=== PATIENT | male | born 1970 | race Caucasian/White ===

== ENCOUNTER 2021-05-10 16:41 | Emergency (ER) | payer BC ==
[2021-05-10] MEDS ORDERED: HYDROCODON-ACE1 EAC4 PO (18:32)
== END 2021-05-10 18:45 | disposition home or self-care (01) ==
LOC: ER1 16:41
DX: S42.032A Displaced fracture of lateral end of left clavicle, initial encounter for closed fracture (principal); S01.01XA Laceration without foreign body of scalp, initial encounter; Z88.0 Allergy status to penicillin; V49.40XA Driver injured in collision with unspecified motor vehicles in traffic accident, initial encounter; Y92.410 Unspecified street and highway as the place of occurrence of the external cause
CPT/HCPCS: 12001; 70450; 71045; 72125; 73030; 90471; 99285